=== PATIENT | female | born 1955 | race Caucasian/White ===

== ENCOUNTER 2020-08-09 01:53 | Emergency (ER) | payer BC, MEDICAID ==
[~2020-08-09] VITALS: Ht 162.6 cm; Wt 79.5 kg
--- NOTE | 2020-08-09 02:06 | NUR ---
PATIENT IS RAMBLING INCOHERENTLY AND IS EXCITED BUT COOPERATIVE. PATIENT IS UNABLE TO GIVE ME ANY HISTORY OR TELL ME IF SHE HAS ANY ALLERGIES. PATIENT IDENTIFIES A MALE AND LIKES TO BE CALLED "MIKE".
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
[2020-08-09 02:42] LABS: COLOR,URINE YELLOW (Yellow); GLUCOSE, URINE NEGATIVE (Neg); KETONES,URINE NEGATIVE (Neg); LEUKOCYTE ESTERASE ,URINE TRACE (Neg); NITRITES, URINE NEGATIVE (Neg); OCCULT BLOOD,URINE NEGATIVE (Neg); PROTEIN,URINE NEGATIVE (Neg); UROBILINOGEN,URINE 0.2 E.U/dL (0.2-1.0)
[2020-08-09 02:45] LABS: BASOPHILS # (AUTO) 0.1 X10'3 (0-0.2); BASOPHILS % (AUTO) 0.8 % (0-1); EOSINOPHILS # (AUTO) 0.2 X10'3 (0-0.9); EOSINOPHILS % (AUTO) 2.3 % (0-6); HEMATOCRIT 41.5 % (35.0-45.0); HEMOGLOBIN 13.9 g/dl (12.0-16.0); LYMPHOCYTES # (AUTO) 1.8 X10'3 (1.1-4.8); LYMPHOCYTES % (AUTO) 21.2 % (21-51); MEAN CORPUSCULAR HGB CONC 33.4 g/dL (33.0-36.5); MEAN CORPUSCULAR VOLUME 95.9 FL (78-98); MEAN PLATELET VOLUME 7.6 FL (7.4-10.4); MONOCYTES # (AUTO) 0.5 X10'3 (0-0.9); MONOCYTES % (AUTO) 6.1 % (2-12); NEUTROPHILS # (AUTO) 5.8 X10'3 (1.8-7.7); NEUTROPHILS % (AUTO) 69.6 % (42-75); PLATELET COUNT 330 X10'3 (140-440); RED BLOOD COUNT 4.33 X10'6 (4.20-5.60); RED CELL DISTRIBUTION WIDTH 13.8 % (11.5-14.5); WHITE BLOOD COUNT 8.3 X10'3 (4.5-11.0)
[2020-08-09 02:57] LABS: CLARITY,URINE SLIGHTLY CLOUDY (Clear); UA COLLECTION TYPE CLN CATCH MIDSTREAM
[2020-08-09 02:58] LABS: BACTERIA,URINE FEW /HPF (Neg); RBC,URINE NONE SEEN /HPF (0-2); SQUAMOUS EPITHELIAL CELL,UR FEW /LPF (FEW); WBC,URINE 0-4 /HPF (0-4)
[2020-08-09 03:07] LABS: ALANINE AMINOTRANSFERASE 24 U/L (12-78); ALBUMIN 3.1 G/DL (3.4-5.0); ALBUMIN/GLOBULIN RATIO 0.9 (1.1-1.5); ALKALINE PHOSPHATASE 119 IU/L (46-116); ANION GAP 7 (8-16); ASPARTATE AMINO TRANSFERASE 14 U/L (10-37); BILIRUBIN,TOTAL 0.3 MG/DL (0.1-1.0); BLOOD UREA NITROGEN 9 MG/DL (7-18); BUN/CREATININE RATIO 8.3 (6.6-38.0); CALCIUM 8.8 MG/DL (8.5-10.1); CHLORIDE 105 MMOL/L (99-107); CREATININE 1.08 MG/DL (0.40-0.90); GLUCOSE 98 MG/DL (70-104); POTASSIUM 3.9 MMOL/L (3.5-5.1); SODIUM 139 MMOL/L (135-145); TOTAL CARBON DIOXIDE 27.2 MMOL/L (24-32); TOTAL PROTEIN 6.5 G/DL (6.4-8.2); eGFR 51 ML/MIN
[2020-08-09 03:11] LABS: URINE AMPHETAMINE SCREEN NEGATIVE (Neg); URINE BARBITUATE SCREEN NEGATIVE (Neg); URINE BENZODIAZEPINES SCREEN NEGATIVE (Neg); URINE CANNABINOID SCREEN NEGATIVE (Neg); URINE COCAINE SCREEN NEGATIVE (Neg); URINE METHADONE SCREEN NEGATIVE (Neg); URINE OPIATE SCREEN NEGATIVE (Neg); URINE PHENCYCLIDINE SCREEN NEGATIVE (Neg)
[2020-08-09 03:18] LABS: ACETAMINOPHEN < 2.0 UG/ML (10-30); ETHANOL < 0.010 GM/DL (0.0-0.010)
[2020-08-09] MEDS ORDERED: THY60T PO (03:23)
[2020-08-09] MEDS ORDERED: ZIPR40CA2 PO (03:23)
--- NOTE | 2020-08-09 03:24 | NUR ---
VERIFIED WITH PATIENT THAT SHE HAD A PRESCRIPTION FORM 04/2020 FOR GEODON 40 MG DAILY AND ARMOUR THYROID 60 MG DAILY BUT PATIENT STATES SHE "HAS NOT TAKEN THEM FOR 2-3 MONTHS BECAUSE THEY WERE NOT DOING ANYTHING". MD MEIER INFORMED, MED REC COMPLETED.
[2020-08-09] MEDS ORDERED: DOCU-149 PO (03:35)
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
[2020-08-09] MEDS ORDERED: LITH300T3 PO (15:43)
[2020-08-09] MEDS ORDERED: LITH600C PO (15:43)
[2020-08-09] MEDS ORDERED: BENZ1TAB7 PO (15:45)
[2020-08-09] MEDS ORDERED: ZIPR80CA10 PO (15:45)
--- NOTE | 2020-08-09 17:10 | NUR ---
PT GETS HER MEDICATIONS IN [place] AT [facility] BUT HAS NEVER PICKED UP HER NEW PRESCRITIONS FROM THE END OF JUNE. WILL LEAVE THE MEDICATIONS RECORDED BY FRAME TRIMMER WHEN PT FIRST CAME IN.
--- NOTE | 2020-08-09 18:20 | NUR ---
[facility] CLINICIAN AT BEDSIDE TO EVAL PT.
[2020-08-09] MEDS ORDERED: ziprasidone 20mg capsule PO ONE (20:15)
[2020-08-09] MEDS ORDERED: ziprasidone 20mg capsule PO SCH (20:15)
[2020-08-09] MEDS: docusate sod 100mg capsule PO SCH (20:48)
--- NOTE | 2020-08-10 06:33 | NUR ---
Received report. Pt awake in bed resting w/o mdistress at beginning of shift.
[2020-08-10] MEDS: docusate sod 100mg capsule PO SCH ×2 (08:30→19:44)
[2020-08-10] MEDS: ziprasidone 20mg capsule PO SCH (08:30)
--- NOTE | 2020-08-10 09:30 | NUR ---
Pt awoke and took AM meds w/o issue. She ate breakfast and used the bathroom multiple times. Pt asked for a snak and resting in bed. She made delusional statements about knowing things about staff, including last names, which were not true. Became mildly irritable at one point about not being able to wear shoes, but eventually accepted this limit.
--- NOTE | 2020-08-10 17:43 | NUR ---
Pt in bed resting. Speech is clear but disorganized. Continues to be redirectable but also making bizzare statements and claims. Uses bathroom frequently.
--- NOTE | 2020-08-10 19:38 | NUR ---
One to one with the patient to assess severity of thought disorder. The patient has rapid speech and her thought process is delusional and disorganized. She is laughing to herself in apparent response to internal stimuli. She was asked why she was here she gave a rambling reply which included, "There was an epidemic of recluse spiders and snakes in [place]" and "Someone zoomed me somewhere" She has no ability to make a rational plan for food, half-way or clothing. She is pleasant and her mood appears to be elevated.
--- NOTE | 2020-08-10 21:37 | NUR ---
Report called to Ryley Ling Stephanie.
--- NOTE | 2020-08-10 22:22 | NUR ---
The patient appears to be sleeping
--- NOTE | 2020-08-10 23:45 | NUR ---
The patient appears to be sleeping
--- NOTE | 2020-08-11 02:08 | NUR ---
The patient is on bed laughing to herself
--- NOTE | 2020-08-11 03:41 | NUR ---
The patient is walking around her bed and laughing to herself.
--- NOTE | 2020-08-11 05:05 | NUR ---
The patient is awake but currently resting on her bed
[2020-08-11 05:39] VITALS: BP 94/60
--- NOTE | 2020-08-11 06:30 | NUR ---
Pt got up and walked to the bathroom.
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
[2020-08-11] MEDS ORDERED: thyroid, pork 30mg tablet PO SCH (08:00)
[2020-08-11] MEDS: ziprasidone 20mg capsule PO SCH (08:11)
[2020-08-11] MEDS: docusate sod 100mg capsule PO SCH (08:16)
--- NOTE | 2020-08-11 09:23 | NUR ---
Pt approached this nurse at the nurses' station to say, "Hi. My name is Ryan Estrella."
--- NOTE | 2020-08-11 09:55 | NUR ---
[facility] there. They requested that her [id number] be faxed to them and it was done.
--- NOTE | 2020-08-11 10:42 | NUR ---
Krystina cunningham in ED - 08/11/20 at 1044 by JAMIL Pt was already accepted at [facility] before [facility]padd Goldonna called. Per credit charge authorizer Jason, she will be transferred.
--- NOTE | 2020-08-11 10:44 | NUR ---
Pt was already accepted at [facility] before Anuradha Contreras called. Per smelter charger Jason, she will be transferred upstairs.
--- NOTE | 2020-08-11 12:27 | NUR ---
Pt is lying in bed on her right side, she appears to be sleeping.
--- NOTE | 2020-08-11 13:00 | NUR ---
Liliana العراقيs are here from [facility] to take the pt upstairs.
--- NOTE | 2020-08-11 13:10 | NUR ---
Pt was transferred upstairs to [facility], [facility] techs transported her via W/c.
[2020-08-11] MEDS ORDERED: ZIPR40CA2 PO (13:45)
== END 2020-08-11 13:10 ==
LOC: ER 01:55
DX: F20.9 Schizophrenia, unspecified (principal); Z20.822 Contact with and (suspected) exposure to COVID-19; F22 Delusional disorders; Z79.899 Other long term (current) drug therapy
CPT/HCPCS: 36415; 71045; 80053; 80305; 80320; 80329; 81001; 84443; 85025; 87635; 99285; C9803; 87426